=== PATIENT | female | born 1990 | race African-American/Black ===

== ENCOUNTER 2017-04-16 17:00 | Emergency (ER) | payer SELFPAY ==
[~2017-04-16] VITALS: Ht 167.6 cm; Wt 92.0 kg
[~2017-04-16 17:00] MED LIST: ZITH250T PO
[2017-04-16 17:01] VITALS: BP 136/75; PULSE 115; RESP 18; TEMP 98.5; O2SAT 100
--- NOTE | 2017-04-16 17:09 | PD ---
Physical Exam Time Seen by Provider: 17:05 Narrative 26yo F c/o chest pain and SOB on and off for 2 days. SOB and chest pain is worse w/activity. Bill radiation of chest pain. Light headedness and back pain. LMP February 27. Patient is . Denies abd pain, cramping vag bleeding. Denies fever, vomiting. Patient seen in triage. Awaiting bed placement. VS reviewed. Data Data Last Documented VS Vital Signs Date Time Temp Pulse Resp B/P Pulse Ox O2 Delivery O2 Flow Rate FiO2 04/16/17 17:01 98.5 115 18 136/75 100 MDM Supervised Visit with RAJAT: Joana Young April 16, 2017 17:08
--- NOTE | 2017-04-16 17:33 | RADRPT ---
EXAM DATE/TIME: 04/16/2017 17:34 [facility] COMPARISON: CHEST SINGLE AP, November 26, 2013, 17:31. INDICATIONS : Chest pain and short of breath for 2 days. MEDICAL HISTORY : . SURGICAL HISTORY : None. ENCOUNTER: Initial ACUITY: 2 days PAIN SCORE: 4/10 LOCATION: Bilateral chest FINDINGS: A single view of the chest demonstrates the lungs to be symmetrically aerated without evidence of mas s, infiltrate or effusion. The cardiomediastinal contours are unremarkable. Osseous structures are intact. CONCLUSION: Normal examination. Edison Womack MD on April 16, 2017 at 17:31 Board Certified Radiologist. This report was verified electronically.
[2017-04-16 17:40] LABS: BASOPHIL # 0.1 TH/MM3 (0-0.2); BASOPHIL % 0.7 % (0.0-2.0); EOSINOPHIL # 0.3 TH/MM3 (0-0.4); EOSINOPHIL % 2.4 % (0.0-4.0); HEMATOCRIT 38.9 % (35.0-46.0); HEMO FLAGS DIFF FINAL; LYMPH % 21.4 % (9.0-44.0); LYMPHOCYTE # 2.2 TH/MM3 (1.0-4.8); MEAN CELL VOLUME 85.8 FL (80.0-100.0); MEAN CORPUSCULAR HEMOGLOBIN 28.6 PG (27.0-34.0); MEAN CORPUSCULAR HGB CONC 33.4 % (32.0-36.0); MONO % 8.2 % (0.0-8.0); NEUT % 67.3 % (16.0-70.0); PLATELET COUNT 257 TH/MM3 (150-450); RED BLOOD COUNT 4.54 MIL/MM3 (4.00-5.30); RED CELL DISTRIBUTION WIDTH 13.3 % (11.6-17.2); WHITE BLOOD COUNT 10.5 TH/MM3 (4.0-11.0)
[2017-04-16 18:11] LABS: ANION GAP 9 MEQ/L (5-15); BICARBONATE 23.4 MEQ/L (21.0-32.0); BLOOD UREA NITROGEN 9 MG/DL (7-18); CHLORIDE 105 MEQ/L (98-107); GLOMERULAR FILTRATION RATE 125 ML/MIN (>89); POTASSIUM 4.1 MEQ/L (3.5-5.1); SODIUM (NA) 137 MEQ/L (136-145)
[2017-04-16 18:16] LABS: CREATINE KINASE 145 U/L (26-192)
[2017-04-16 18:28] LABS: CKMB 1.9 NG/ML (0.5-3.6)
--- NOTE | 2017-04-17 21:39 | EKG ---
Date Performed: 04/16/2017 Time Performed: 17:30:56 PTAGE: 26 years EKG: SINUS TACHYCARDIA ABNORMAL RHYTHM ECG PREVIOUS TRACING : 03/02/2015 08.45 Compared to the previous tracing sinus tachycardia is new DOCTOR: Trevon Macias Interpretating Date/Time 04/17/2017 21:38:17
== END 2017-04-16 19:30 | disposition left against medical advice (07) ==
LOC: NED 17:00
DX: R07.9 Chest pain, unspecified (principal); R06.02 Shortness of breath
CPT/HCPCS: 71010; 80048; 82550; 82552; 84484; 84703; 85025; 93005; 99284

== ENCOUNTER 2017-06-19 08:05 | Emergency (ER) | payer BC, MEDICAID ==
[2017-06-19 08:07] VITALS: BP 117/64; PULSE 76; RESP 16; TEMP 97.9; O2SAT 99
--- NOTE | 2017-06-19 08:40 | PD ---
HPI . Head pain Chief Complaint: Medical Clearance Time Seen by Provider: 08:40 Travel History International Travel<30 days: No Contact w/Intl Traveler<30days: No History of Present Illness HPI Patient presents with the chief complaint of head pain. She states that their roof caved in this morning and struck her on top of her head. She denies loss of consciousness. She denies any other complaints. No exacerbating or relieving factor. She has not taken any medication prior to arrival. She rates her pain 7/10. PFSH Past Medical History Hx Anticoagulant Therapy: No Cardiovascular Problems: No Chemotherapy: No Cerebrovascular Accident: No Diabetes: No Diminished Hearing: No Headaches: Yes Respiratory: No Myocardial Infarction: No ?: : 2 Para: 1 Miscarriage: 0 : 0 Past Surgical History Abdominal Surgery: Yes (UMBILICAL HERNIA REPAIR) Hysterectomy: No Social History Alcohol Use: No Tobacco Use: No Substance Use: No Allergies-Medications (Allergen,Severity, Reaction): Coded Allergies: No Known Allergies (Unverified , 06/19/17) Reported Meds & Prescriptions Reported Meds & Active Scripts Active Zithromax Z-Alpesh (Azithromycin) 250 Mg Tab 250 Mg PO DIRECTED 500 MG (2 TABLETS) PO ON DAY 1, THEN 250 MG (1 TABLET) PO ON DAYS 2 TO 5. Review of Systems Except as stated in HPI: all other systems reviewed are Neg General / Constitutional: No: Fever, Chills Eyes: No: Blurred Vision HENT: Positive: Headaches Cardiovascular: No: Chest Pain or Discomfort Respiratory: No: Shortness of Breath Gastrointestinal: Positive: Nausea, No: Abdominal Pain Physical Exam Narrative GENERAL: Awake and alert and in no acute distress. SKIN: Warm and dry. HEAD: Atraumatic. Normocephalic. No evidence of trauma to the head. EYES: Pupils equal and round. Extraocular movements are intact. ENT: No nasal bleeding or discharge. Mucous membranes pink and moist. NECK: Trachea midline. Neck is supple and nontender. CARDIOVASCULAR: Regular rate and rhythm. Heart sounds normal. RESPIRATORY: No accessory muscle use. Lungs are clear. GASTROINTESTINAL: Abdomen soft, non-tender, nondistended. MUSCULOSKELETAL: No obvious deformities. No edema. NEUROLOGICAL: Awake and alert. No obvious cranial nerve deficits. Motor grossly within normal limits. Normal speech. PSYCHIATRIC: Appropriate mood and affect; insight and judgment normal. Data Data Last Documented VS Vital Signs Date Time Temp Pulse Resp B/P Pulse Ox O2 Delivery O2 Flow Rate FiO2 06/19/17 08:07 97.9 76 16 117/64 99 MDM Medical Decision Making Medical Screen Exam Complete: Yes Emergency Medical Condition: Yes Differential Diagnosis My differential diagnosis of head trauma includes but is not limited to scalp contusion, concussion, intracerebral hemorrhage. Narrative Course Patient presents with the chief complaint of pain in her head after her roof caved in and struck her in the head. She has no signs or symptoms of a head injury. Diagnosis Primary Impression: Scalp contusion Patient Instructions: General Instructions, Scalp Contusion in Adults (ED) Disposition: 01 DISCHARGE HOME Condition: Stable Joselyn Tobar MD Jun 19, 2017 08:40
[2017-06-19] MEDS ORDERED: ACETAMINOPHEN 325 MG TAB PO ONE (09:15)
== END 2017-06-19 09:24 | disposition home or self-care (01) ==
LOC: NEPE 08:05
DX: S00.03XA Contusion of scalp, initial encounter (principal); W20.8XXA Other cause of strike by thrown, projected or falling object, initial encounter
CPT/HCPCS: 99281

== ENCOUNTER 2017-08-10 23:51 | Emergency (ER) | payer MEDICAID ==
--- NOTE | 2017-08-11 00:31 | PD ---
HPI Chief Complaint Right lower quadrant pain Date Seen: Aug 11, 2017 Time Seen: 00:26 Travel History International Travel<30 Days: No Contact w/Intl Traveler<30Days: No Known Affected Area: No History of Present Illness HPI 26-year-old who is at 22 weeks gestation comes in today complaining of right lower quadrant pain set off and on for several days but it's worsened today and settled right above her groin fold and becomes worse with movement. Patient denies vaginal discharge, vaginal bleeding, or contractions. She denies obstetric complications and is due to see her provider this . Weeks Gestation: 22 Para: 2 : 3 History Past Medical History Medical History: Denies Significant Hx Obstetric History Obstetric History 2 Past Surgical History Narrative Surgical 1998 hernia repair Family History Family History: Negative Social History Alcohol Use: No Tobacco Use: No Substance Abuse: No Allergies-Medications (Allergen,Severity, Reaction): Coded Allergies: No Known Allergies (Unverified , 06/19/17) Home Meds Active Scripts Azithromycin (Zithromax Z-Alpesh) 250 Mg Tab, 250 MG PO DIRECTED, #6 TAB 500 MG (2 TABLETS) PO ON DAY 1, THEN 250 MG (1 TABLET) PO ON DAYS 2 TO 5. Prov:Garret Rogers MD 11/11/14 Review of Systems Except as stated in HPI: all other systems reviewed are Neg Physical Exam Narrative GENERAL: Well-nourished, well-developed patient. SKIN: Warm and dry. HEAD: Normocephalic and atraumatic. EYES: No scleral icterus. No injection or drainage. ENT: No nasal drainage noted. Mucous membranes pink. Airway patent. NECK: Supple, trachea midline. No JVD. CARDIOVASCULAR: Regular rate and rhythm without murmurs, gallops, or rubs. RESPIRATORY: Breath sounds equal bilaterally. No accessory muscle use. ABDOMEN/GI: Abdomen soft, non-tender, bowel sounds present, no rebound, no guarding. Pain seems to be right above the right groin fold with palpation and was Ronni's the baby is on the patient's right side Gravid to [-21] weeks size Fundal Height: [-] GENITOURINARY: Exam has been deferred External Genitalia: intact and normal in appearance BUS glands: [Normal-] Cervix: [-] Dilatation: [-] Effacement: [-] Station: [-] Presentation: [-] Membranes: [intact or ruptured] Uterine Contractions: [-] FHT's: 152 via handheld Doppler Category: [-] Baseline: [-] Reactive: [-] Variability: [-] Decels: [-] EXTREMITIES: No cyanosis or edema. BACK: Nontender without obvious deformity. No CVA tenderness. NEUROLOGICAL: Awake and alert. Motor and sensory grossly within normal limits. Five out of 5 muscle strength in all muscle groups. Normal speech. 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
== END 2017-08-11 00:31 | disposition home or self-care (01) ==
LOC: HOBED 23:51
DX: O26.892 Other specified pregnancy related conditions, second trimester (principal); R10.2 Pelvic and perineal pain; Z3A.22 22 weeks gestation of pregnancy
CPT/HCPCS: 99282